=== PATIENT | female | born 1970 | race Caucasian/White ===

== ENCOUNTER 2016-10-26 11:40 | Emergency (ER) | payer OTHER ==
[2016-10-26] MEDS ORDERED: SODIUM CHLORIDE 0.9% 1,000 ML ONE (16:13)
[2016-10-26] MEDS ORDERED: KETOROLAC 30 MG/ML VIAL ONE (16:13)
[2016-10-26] MEDS ORDERED: ONDANSETRON 4 MG VIAL ONE (16:13)
[2016-10-26] MEDS ORDERED: MORPHINE 4 MG/ML SYR ONE (17:32)
[2016-10-26] MEDS ORDERED: DILAUDID 1 MG/ML AMP ONE (19:11)
== END 2016-10-26 19:40 | disposition home or self-care (01) ==
LOC: ER 11:40
CPT/HCPCS: 36415 ×2; 74022 ×2; 80053 ×2; 81001 ×2; 83690 ×2; 84703 ×2; 85025 ×2; 96361; 96374; 96375; J1170; J1885; J2270; J2405

== ENCOUNTER 2016-11-08 15:27 | Emergency (ER) | payer OTHER ==
[2016-11-08] MEDS ORDERED: ONDANSETRON 4 MG VIAL ONE (18:19)
[2016-11-08] MEDS ORDERED: DILAUDID 1 MG/ML AMP ONE (18:19)
[2016-11-08] MEDS ORDERED: TRAMADOL 50 MG TAB ONE (19:16)
== END 2016-11-08 19:25 | disposition home or self-care (01) ==
LOC: ER 15:27
DX: Z76.0 Encounter for issue of repeat prescription (principal); K86.1 Other chronic pancreatitis; R10.13 Epigastric pain; J44.9 Chronic obstructive pulmonary disease, unspecified; K21.9 Gastro-esophageal reflux disease without esophagitis; F41.1 Generalized anxiety disorder; F32.9 Major depressive disorder, single episode, unspecified; Z79.899 Other long term (current) drug therapy; F17.290 Nicotine dependence, other tobacco product, uncomplicated
CPT/HCPCS: 36415; 74000; 80053; 81001; 83690; 84703; 85025; 96374; 96375; 99285; G0479; J1170; J2405; 80307